=== PATIENT | female | born 1970 | race Caucasian/White ===

== ENCOUNTER 2017-08-05 22:45 | Emergency (ER) | payer OTHER ==
[2017-08-05 23:10] LABS: BILIRUBIN,URINE NEGATIVE (NEGATIVE)
[2017-08-05 23:15] LABS: UA CHARGE (STRIP ONLY) YES; UR CULTURE IF IND NOT INDICATED
[2017-08-05 23:16] LABS: HCG UR QUAL NEGATIVE
[2017-08-05 23:25] LABS: BASOPHILS # (AUTO) 0.1 10^3/uL (0.0-0.1); BASOPHILS % (AUTO) 0.7 %; EOSINOPHILS # (AUTO) 0.4 10^3/uL (0.0-0.7); EOSINOPHILS % (AUTO) 3.6 %; HCT - HEMATOCRIT 33.7 % (37.0-47.0); HGB - HEMOGLOBIN 11.6 g/dL (12.0-16.0); LYMPHOCYTES % (AUTO) 25.9 %; MEAN CORPUSCULAR HEMOGLOBIN 30.7 pg (27.0-31.0); MEAN CORPUSCULAR HGB CONC 34.5 g/dL (32.0-36.0); MEAN PLATELET VOLUME 7.1 fL (7.9-10.8); MONOCYTES # (AUTO) 1.2 10^3/uL (0.0-1.0); NEUTROPHILS # (AUTO) 6.9 10^3/uL (1.5-6.6); NEUTROPHILS % (AUTO) 59.8 %; RED BLOOD COUNT 3.79 10^6/uL (4.20-5.40); RED CELL DISTRIBUTION WIDTH 13.4 % (12.0-15.0); UNCORRECTED WHITE BLOOD COUNT 11.6 x10^3/uL; WHITE BLOOD COUNT 11.6 x10^3/uL (4.8-10.8)
--- NOTE | 2017-08-05 23:34 | ED Physician Documentation ---
History of Present Illness - Stated complaint Stated Complaint: BACK PX - Chief complaint Chief Complaint: Abd Pain - History obtained from History obtained from: Patient, Family - History of Present Illness Timing: How many days ago (2) Pain level max: 7 Pain level now: 4 Improved by: Hydroxyzine Worsened by: Nothing - Additonal information Additional information: Patient is a 47-year-old female who presents to the emergency department with left side pain, this is near the level of the lower ribs, radiates up towards the axilla in the mid axillary line. Took hydroxyzine tonight which helps the pain. Denies any recent travel. No pleuritic chest pain. No other chest pain. No abdominal pain. No constipation. States feels like there is "a gas bubble". Has not taken anything else for the pain besides hydroxyzine. No urinary symptoms. No vaginal bleeding. No diarrhea. She is not on control. Does not smoke. There is no rash associated with this. Denies any recent injuries. Denies any recent heavy lifting. Pain does not change with movement. Patient also complains of pain when moving the right thumb, occasionally gets stuck at 90 and she cannot move it. Does not recall any recent injury. States that it has been like this for the past 3 months. Review of Systems Ten Systems: 10 systems reviewed and negative Constitutional: denies: Fever, Chills Eyes: denies: Decreased vision, Photophobia Ears: denies: Loss of hearing, Ear pain Nose: denies: Rhinorrhea / runny nose, Congestion Throat: denies: Sore throat Cardiac: denies: Chest pain / pressure Respiratory: denies: Cough, Hemoptysis, Wheezing GI: denies: Abdominal Pain, Nausea, Vomiting, Constipation, Diarrhea : denies: Dysuria, Frequency, Hesitancy Skin: reports: Rash (Has a chronic rash on her left lower back, not near the site of pain) Musculoskeletal: denies: Neck pain, Back pain Neurologic: denies: Focal weakness, Numbness, Headache PD PAST MEDICAL HISTORY - Past Medical History Past Medical History: Yes Other Past Medical History: Ectopic - Past Surgical History 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 - Present Medications Home Medications: Ambulatory Orders Medication Instructions Recorded Confirmed Meloxicam [Mobic] 7.5 mg PO BID PRN #20 tablet 08/06/17 - Allergies Allergies/Adverse Reactions: Allergies Allergy/AdvReac Type Severity Reaction Status Date / Time No Known Drug Allergies Allergy Verified 08/05/17 22:55 - Social History Does the pt smoke?: No Smoking Status: Never smoker Does the pt drink ETOH?: No Does the pt have substance abuse?: No - Immunizations Immunizations are current?: Yes - POLST Patient has POLST: No PD ED PE NORMAL - Vitals Vital signs reviewed: Yes - General General: Alert and oriented X 3, No acute distress, Well developed/nourished - HEENT HEENT: Moist mucous membranes - Neck Neck: Supple, no meningeal sign - Cardiac Cardiac: RRR, Strong equal pulses - Respiratory Respiratory: No respiratory distress, Clear bilaterally - Abdomen Abdomen: Normal bowel sounds, Soft, Non tender, Non distended - Back Back: No CVA TTP, No spinal TTP - Derm Derm: Warm and dry, Other (5 x 8 cm area of raised erythematous skin, left lower flank. Not scaling. No blisters.) - Extremities Extremities: No edema, No calf tenderness / cord, Other (R hand - no bony tenderness over the R thumb. mild pain with ROM of the R thumb. NVI. 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 No CVA tenderness. No lymphadenopathy in the bilateral axilla. Results - Vitals Vitals: Vital Signs - 24 hr 08/05/17 08/06/17 22:50 00:43 Temperature 36.8 C Heart Rate 86 75 Respiratory 16 14 Rate Blood Pressure 155/83 H 132/72 H O2 Saturation 100 99 Oxygen O2 Source Room air - Labs Labs: Laboratory Tests 08/05/17 08/05/17 08/05/17 22:58 22:58 23:18 WBC 11.6 H RBC 3.79 L Hgb 11.6 L Hct 33.7 L MCV 89.0 MCH 30.7 MCHC 34.5 RDW 13.4 Plt Count 328 MPV 7.1 L Neut # 6.9 H Lymph # 3.0 [place] # 1.2 H Eos # 0.4 Baso # 0.1 Absolute Nucleated RBC 0.00 Nucleated RBCs 0.0 D-Dimer Sodium Potassium Chloride Carbon Dioxide Anion Gap BUN Creatinine Estimated GFR (MDRD) Glucose Calcium Total Bilirubin AST ALT Alkaline Phosphatase Total Protein Albumin Globulin Albumin/Globulin Ratio Lipase Urine Color YELLOW Urine Clarity CLEAR Urine pH 6.0 Ur Specific [place] <=1.005 <=1.005 Urine Protein NEGATIVE Urine Glucose (UA) NEGATIVE Urine Ketones NEGATIVE Urine Occult Blood NEGATIVE Urine Nitrite NEGATIVE Urine Bilirubin NEGATIVE Urine Urobilinogen 0.2 (NORMAL) Ur Leukocyte Esterase NEGATIVE Ur Microscopic Review NOT INDICATED Urine Culture Comments NOT INDICATED Urine HCG, Qual NEGATIVE 08/05/17 08/05/17 23:18 23:18 WBC RBC Hgb Hct MCV MCH MCHC RDW Plt Count MPV Neut # Lymph # [place] # Eos # Baso # Absolute Nucleated RBC Nucleated RBCs D-Dimer < 200.0 L Sodium 136 Potassium 3.7 Chloride 105 Carbon Dioxide 23 Anion Gap 8.0 BUN 13 Creatinine 1.0 Estimated GFR (MDRD) 59 L Glucose 112 H Calcium 8.8 Total Bilirubin 0.6 AST 24 ALT 20 Alkaline Phosphatase 87 Total Protein 7.3 Albumin 3.8 Globulin 3.5 Albumin/Globulin Ratio 1.1 Lipase 29 Urine Color Urine Clarity Urine pH Ur Specific [place] Urine Protein Urine Glucose (UA) Urine Ketones Urine Occult Blood Urine Nitrite Urine Bilirubin Urine Urobilinogen Ur Leukocyte Esterase Ur Microscopic Review Urine Culture Comments Urine HCG, Qual PD MEDICAL DECISION MAKING - ED course Complexity details: reviewed results, re-evaluated patient, considered differential, d/w patient, d/w family ED course: Patient is a 47-year-old female Who has left side pain of unclear etiology. Does not appear to be related to her kidney, spleen, abdomen, lungs. Lungs are clear to auscultation bilaterally. No chest wall tenderness. No lymphadenopathy. Normal labs. Normal urinalysis. Symptoms resolved with the dose of Toradol. Will trial on NSAIDs for home and see how she progresses. The rash that she has on her back is chronic and unchanged. Also appears unrelated. She appears to likely have a gamekeeper's thumb on the right hand, will place in a thumb spica splints to see if this helps her pain and have her follow-up with her doctor for further evaluation. Patient and family counseled regarding signs and symptoms for which I believe and urgent re-evaluation would be necessary. Patient with good understanding of and agreement to plan and is comfortable going home at this time This document was made in part using voice recognition software. While efforts are made to proofread this document, sound alike and grammatical errors may occur. Departure - Departure Disposition: 01 Home, Self Care Clinical Impression: Side pain Gamekeeper's thumb of right hand Qualifiers: Encounter type: initial encounter Qualified Code(s): S53.31XA - Traumatic rupture of right ulnar collateral ligament, initial encounter Condition: Good Instructions: ED Acute Pain [facility] Follow-Up: your,doctor in 3 days [Other] Prescriptions: Meloxicam [Mobic] 7.5 mg PO BID PRN #20 tablet PRN Reason: pain Comments: The cause of your pain is unclear today. All your tests are normal today. return if you worsen. Your blood pressure was elevated today on check in to the emergency department. This does not mean that you have hypertension, it is a common phenomenon to check into the emergency department and have elevated blood pressure. I recommend that you see your primary care physician within the week to have it rechecked when you're feeling better. Discharge Date/Time: 08/06/17 01:04
[2017-08-05 23:37] LABS: ALBUMIN/GLOBULIN RATIO 1.1 (1.0-2.2); BILIRUBIN,TOTAL 0.6 mg/dL (0.2-1.0); CALCIUM 8.8 mg/dL (8.5-10.3); POTASSIUM 3.7 mmol/L (3.5-5.0); TOTAL PROTEIN 7.3 g/dL (6.7-8.2)
[2017-08-06] MEDS ORDERED: KETOROLAC 60 MG/2 ML VIAL IVP STA (00:05)
[2017-08-06] MEDS ORDERED: KETOROLAC 30 MG/ML VIAL ONE (00:15)
[2017-08-06 00:44] VITALS: BP 132/72
== END 2017-08-06 01:04 | disposition home or self-care (01) ==
LOC: ED 22:45
DX: M79.1 Myalgia (principal); S53.31XA Traumatic rupture of right ulnar collateral ligament, initial encounter; X58.XXXA Exposure to other specified factors, initial encounter; R03.0 Elevated blood-pressure reading, without diagnosis of hypertension
CPT/HCPCS: 36415; 80053; 81001; 81003; 81025; 83690; 85025; 85379; 87086; 96374; 99283; 99284